=== PATIENT | female | born 1965 | race African-American/Black ===

== ENCOUNTER 2016-10-29 07:41 | Emergency (ER) | payer OTHER ==
[~2016-10-29] VITALS: Ht 154.9 cm; Wt 112.0 kg
[~2016-10-29 07:41] MED LIST: CARD240C6 PO; FURO1TAB93 PO; OMEP20.62 PO; POTA10CA26 PO; RANI150 PO
[2016-10-29 07:43] VITALS: BP 140/95; PULSE 76; RESP 20; TEMP 98.1; O2SAT 95
--- NOTE | 2016-10-29 08:45 | PD ---
HPI Chief Complaint: Pain: Acute or Chronic Time Seen by Provider: 08:00 Travel History International Travel<30 days: No Contact w/Intl Traveler<30days: No Traveled to known affect area: No History of Present Illness HPI Patient is a 51-year-old female presenting to the emergency department for evaluation of left knee pain. Patient denies any injury or trauma. Pain started on Thursday night, patient took ibuprofen on Thursday which relieved pain somewhat. Throughout the day on Thursday the pain increased. Pain is worse with ambulation it is partially relieved with rest. She states that she's been off of her blood pressure medication for several months, and is requesting a refill. PFSH Past Medical History Arthritis: No Asthma: Yes Autoimmune Disease: No Blood Disorders: No Heart Rhythm Problems: Yes Cancer: No Cardiac Catheterization: Yes Cardiovascular Problems: Yes High Cholesterol: Yes Chest Pain: Yes Congestive Heart Failure: No COPD: No Diabetes: No Diminished Hearing: No Endocrine: Yes (MILROY'S SYNDROME) Gastrointestinal Disorders: Yes GERD: Yes Glaucoma: No Genitourinary: Yes Headaches: Yes Hepatitis: No Hiatal Hernia: No Hypertension: Yes Immune Disorder: No Kidney Stones: Yes Musculoskeletal: No Neurologic: Yes Psychiatric: No Reproductive: Yes Respiratory: Yes (bronchitis) Immunizations Current: No Migraines: Yes Myocardial Infarction: No Renal Failure: No Seizures: No Sickle Cell Disease: No Sleep Apnea: No Thyroid Disease: No Ulcer: Yes Past Surgical History Abdominal Surgery: Yes (abdominal total hysterectomy) AICD: No Appendectomy: No Arteriovenous Shunt: No Cardiac Surgery: Yes (cardiac cath ) Section: Yes (X2) Cholecystectomy: Yes (PT DENIES) Coronary Artery Bypass Graft: No Ear Surgery: No Endocrine Surgery: No Eye Surgery: No Genitourinary Surgery: No Gynecologic Surgery: Yes (2 c-sections, 1 lap hysterectomy, 1 total hysterectomy) Hysterectomy: Yes Insulin Pump: No Joint Replacement: No Oral Surgery: No Pacemaker: No Thoracic Surgery: No Other Surgery: Yes (BILAT FEET SURGERY INFANT) Social History Alcohol Use: Yes (OCCASIONAL) Tobacco Use: No Substance Use: No Allergies-Medications (Allergen,Severity, Reaction): Uncoded Allergies: seasonal (Allergy, Severe, 11/09/13) sneezing, sinus pressure Reported Meds & Prescriptions Reported Meds & Active Scripts Active Review of Systems Except as stated in HPI: all other systems reviewed are Neg Musculoskeletal: Positive: Myalgias, Arthralgias, 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 Resting comfortably in no acute distress. SKIN: Warm and dry. HEAD: Normocephalic. EYES: No scleral icterus. No injection or drainage. NECK: Supple, trachea midline. No JVD or lymphadenopathy. CARDIOVASCULAR: Regular rate and rhythm without murmurs, gallops, or rubs. RESPIRATORY: Breath sounds equal bilaterally. No accessory muscle use. No wheezing, rhonchi, or rales noted. GASTROINTESTINAL: Abdomen obese, soft, non-tender, nondistended. MUSCULOSKELETAL: No cyanosis, 1+ edema to bilateral lower extremities. Tenderness to palpation patella medially. No erythema noted. BACK: Nontender without obvious deformity. No CVA tenderness. Data Data Last Documented VS Vital Signs Date Time Temp Pulse Resp B/P Pulse Ox O2 Delivery O2 Flow Rate FiO2 10/29/16 07:43 98.1 76 20 140/95 95 Room Air Orders Knee, Complete (4vws) (10/29/16 ) [facility] Medical Decision Making Medical Screen Exam Complete: Yes Emergency Medical Condition: Yes Interpretation(s) Vital Signs Date Time Temp Pulse Resp B/P Pulse Ox O2 Delivery O2 Flow Rate FiO2 10/29/16 07:43 98.1 76 20 140/95 95 Room Air Differential Diagnosis Arthritis versus fracture versus dislocation versus other Narrative Course Patient is a 51-year-old female presenting to the emergency evaluation of left knee pain. There was no injury or trauma. 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 There is no obvious deformity. Imaging was performed which revealed degenerative changes. Patient was given prescription for meloxicam, she is encouraged follow-up with her primary doctor. Patient will also be provided with prescription for her Cardizem, she is encouraged follow-up with Dr. Arita her marsh buggy operator for further prescription refills. Additionally patient was encouraged to continue range of motion exercises to keep the joint fluid. Patient verbalizes understanding of instructions. Patient is stable for discharge. Diagnosis Primary Impression: Knee pain Qualified Code: M25.562 - Left knee pain, unspecified chronicity Additional Impression: Arthritis Referrals: Provider Engagement Executive Primary Care Physician Patient Instructions: Arthritis (GEN), General Instructions Additional Instructions: Continue range of motion exercises, alternate heat and ice to the affected area , avoid inactivity or bedrest Follow-up with her primary doctor Follow-up with her marsh buggy operator Return to emergency department for any new or worsening symptoms Med/Other Pt SpecificInfo: Prescription(s) given Scripts Meloxicam 7.5 Mg Tab7.5 Mg PO DAILY 10 Days Ref 0 Prov:Geovanna Diaz 10/29/16 Diltiazem CD 24 HR 240 Mg [id number] Mg PO DAILY #30 CAP Ref 0 Prov:Geovanna Diaz 10/29/16 Disposition: 01 DISCHARGE HOME Condition: Stable Geovanna Diaz Oct 29, 2016 08:45
--- NOTE | 2016-10-29 09:15 | RADRPT ---
EXAM DATE/TIME: 10/29/2016 08:27 [facility] COMPARISON: No previous studies available for comparison. INDICATIONS : Left knee pain, no injury. MEDICAL HISTORY : None. SURGICAL HISTORY : None. ENCOUNTER: Initial ACUITY: 2 days PAIN SCORE: 9/10 LOCATION: Left knee FINDINGS: There is moderate arthritic change present with mild medial compartment joint space narrowing and tri compartmental osteophyte formation. No evidence of joint effusion or fracture. Mineralization and ali gnment are satisfactory. CONCLUSION: Moderate degenerative arthritic change. No acute bony findings Bry March MD on October 29, 2016 at 9:12 Board Certified Radiologist. This report was verified electronically.
[2016-10-29] MEDS ORDERED: MELO7.5T4 PO (09:43)
[2016-10-29] MEDS ORDERED: DILT-64 PO (09:43)
== END 2016-10-29 10:02 | disposition home or self-care (01) ==
LOC: NEPB 07:41
DX: M25.562 Pain in left knee (principal)
CPT/HCPCS: 73564; 99283

== ENCOUNTER 2017-04-03 11:42 | Emergency (ER) | payer OTHER ==
[~2017-04-03 11:42] MED LIST changes: -CARD240C6 PO; +DILT-64 PO; -FURO1TAB93 PO; +MELO7.5T4 PO; -OMEP20.62 PO; -POTA10CA26 PO; -RANI150 PO
[2017-04-03 11:46] VITALS: BP 184/122; PULSE 73; RESP 22; TEMP 98.7; O2SAT 98
[2017-04-03] MEDS ORDERED: CLAR10CA3 PO (12:18)
[2017-04-03] MEDS ORDERED: FURO20TA PO (12:18)
--- NOTE | 2017-04-03 12:34 | PD ---
HPI Chief Complaint: Cold / Flu Symptoms Time Seen by Provider: 12:32 Travel History International Travel<30 days: No Contact w/Intl Traveler<30days: No Traveled to known affect area: No History of Present Illness HPI 52-year-old female presents to the emergency department for evaluation of cough , shortness breath and has been ongoing for 4 weeks. 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 The patient denies any fevers. She denies any chest pain. She reports shortness of breath. No abdominal pain. No nausea, vomiting, diarrhea. Patient states she is a nonsmoker. She does report history of GERD, hypertension. She denies any history of CHF. Patient states she has an appointment with her primary care physician on Thursday. She denies any recent surgery or travel. No history DVT or PE. No hemoptysis. No leg edema. No history of cancer. Patient with history of hysterectomy. PFSH Past Medical History Arthritis: No Asthma: Yes Autoimmune Disease: No Blood Disorders: No Heart Rhythm Problems: Yes Cancer: No Cardiac Catheterization: Yes Cardiovascular Problems: Yes High Cholesterol: Yes Chest Pain: Yes Congestive Heart Failure: No COPD: No Diabetes: No Diminished Hearing: No Endocrine: Yes (MILROY'S SYNDROME) Gastrointestinal Disorders: Yes GERD: Yes Glaucoma: No Genitourinary: Yes Headaches: Yes Hepatitis: No Hiatal Hernia: No Hypertension: Yes Immune Disorder: No Kidney Stones: Yes Musculoskeletal: No Neurologic: Yes Psychiatric: No Reproductive: Yes Respiratory: Yes (bronchitis) Immunizations Current: No Migraines: Yes Myocardial Infarction: No Renal Failure: No Seizures: No Sickle Cell Disease: No Sleep Apnea: No Thyroid Disease: No Ulcer: Yes Past Surgical History Abdominal Surgery: Yes (abdominal total hysterectomy) AICD: No Appendectomy: No Arteriovenous Shunt: No Cardiac Surgery: Yes (cardiac cath ) Section: Yes (X2) Cholecystectomy: Yes (PT DENIES) Coronary Artery Bypass Graft: No Ear Surgery: No Endocrine Surgery: No Eye Surgery: No Genitourinary Surgery: No Gynecologic Surgery: Yes (2 c-sections, 1 lap hysterectomy, 1 total hysterectomy) Hysterectomy: Yes Insulin Pump: No Joint Replacement: No Oral Surgery: No Pacemaker: No Thoracic Surgery: No Other Surgery: Yes (BILAT FEET SURGERY INFANT) Social History Alcohol Use: Yes (OCCASIONAL) Tobacco Use: No Substance Use: No Allergies-Medications (Allergen,Severity, Reaction): Uncoded Allergies: seasonal (Allergy, Severe, 11/09/13) sneezing, sinus pressure Reported Meds & Prescriptions Reported Meds & Active Scripts Active Diltiazem CD 24 HR 240 Mg Caper 240 Mg PO DAILY Reported Claritin (Loratadine) 10 Mg Cap 10 Mg PO DAILY Furosemide 20 Mg Tab 20 Mg PO DAILY Review of Systems Except as stated in HPI: all other systems reviewed are Neg Physical Exam Narrative GENERAL: Well-nourished, well-developed female patient, ambulatory. Afebrile. SKIN: Focused skin assessment warm/dry. HEAD: Normocephalic. Atraumatic. EYES: No scleral icterus. No injection or drainage. NECK: Supple, trachea midline. No JVD or lymphadenopathy. CARDIOVASCULAR: Regular rate and rhythm without murmurs, gallops, or rubs. RESPIRATORY: Breath sounds equal bilaterally. No accessory muscle use. Lungs sounds are clear to auscultation. GASTROINTESTINAL: Abdomen soft, non-tender, nondistended. MUSCULOSKELETAL: No cyanosis, or edema. BACK: Nontender without obvious deformity. No CVA tenderness. Data Data Last Documented VS Vital Signs Date Time Temp Pulse Resp B/P Pulse Ox O2 Delivery O2 Flow Rate FiO2 04/03/17 12:35 78 21 168/69 99 Room Air 04/03/17 11:46 98.7 Orders Complete Blood Count With Diff (04/03/17 12:31) Basic Metabolic Panel (Bmp) (04/03/17 12:31) Chest, Single Ap (04/03/17 ) B-Type Natriuretic Peptide (04/03/17 12:34) Labs Laboratory Tests Test 04/03/17 04/03/17 12:50 13:10 White Blood Count 6.8 TH/MM3 Red Blood Count 4.66 MIL/MM3 Hemoglobin 12.7 GM/DL Hematocrit 37.9 % Mean Corpuscular Volume 81.3 FL Mean Corpuscular Hemoglobin 27.2 PG Mean Corpuscular Hemoglobin 33.5 % Concent Red Cell Distribution Width 13.8 % Platelet Count 236 TH/MM3 Mean Platelet Volume 9.6 FL Neutrophils (%) (Auto) 62.9 % Lymphocytes (%) (Auto) 29.1 % Monocytes (%) (Auto) 6.0 % Eosinophils (%) (Auto) 1.6 % Basophils (%) (Auto) 0.4 % Neutrophils # (Auto) 4.3 TH/MM3 Lymphocytes # (Auto) 2.0 TH/MM3 Monocytes # (Auto) 0.4 TH/MM3 Eosinophils # (Auto) 0.1 TH/MM3 Basophils # (Auto) 0.0 TH/MM3 CBC Comment DIFF FINAL Differential Comment Sodium Level 140 MEQ/L Potassium Level 4.0 MEQ/L Chloride Level 105 MEQ/L Carbon Dioxide Level 28.0 MEQ/L Anion Gap 7 MEQ/L Blood Urea Nitrogen 7 MG/DL Creatinine 0.85 MG/DL Estimat Glomerular Filtration 85 ML/MIN Rate Random Glucose 78 MG/DL Calcium Level 8.9 MG/DL B-Type Natriuretic Peptide 4 PG/ML MDM Medical Decision Making Medical Screen Exam Complete: Yes Emergency Medical Condition: Yes Medical Record Reviewed: Yes Interpretation(s) Last Impressions Chest X-Ray 04/03/17 0000 Signed Impressions: Service Date/Time: Monday, April 03, 2017 12:57 - CONCLUSION: No acute cardiopulmonary disease. Donna Luis MD Differential Diagnosis URI versus bronchitis versus pneumonia Narrative Course 52 year old female presents to the emergency department for evaluation of URI symptoms that have been ongoing for 4 weeks. Patient does appear well on exam. CBC, BMP, BNP are ordered and pending. Chest x-ray is ordered and pending. CBC is unremarkable. BMP is unremarkable. BNP is 4. Chest x-ray shows no acute cardiopulmonary disease. Laboratory physical exam are reassuring. There is no evidence of bacterial infection at this time. Patient states she already has Tessalon Perles as needed. She will be discharged with a prescription for an albuterol inhaler. She verbalizes agreement and understanding. She states she has appointment with her primary care provider on Thursday. She is return for any acute worsening of symptoms. The patient was discharged in stable condition with instructions, including return instructions and follow up instructions. Diagnosis Primary Impression: Upper respiratory infection Qualified Code: J06.9 - Upper respiratory tract infection, unspecified type Referrals: Primary Care Physician call for appointment Patient Instructions: General Instructions, Upper Respiratory Infection (ED) Additional Instructions: Use albuterol inhaler as instructed as needed for shortness of breath/wheezing. Follow-up with your primary care physician. Return to the emergency department for any acute worsening of symptoms. Med/Other Pt SpecificInfo: Prescription(s) given Scripts Albuterol 18 GM Inh (Ventolin Hfa 18 GM Inh)90 Mcg/Act Aer1 Puff INH Q4H PRN ( SHORTNESS OF BREATH) #1 INHALER Ref 0 Prov:Debby El 04/03/17 Disposition: 01 DISCHARGE HOME Condition: Stable Debby El Apr 03, 2017 12:34
[2017-04-03 12:35] VITALS: BP 168/69; PULSE 78; RESP 21; O2SAT 99
[2017-04-03 13:23] LABS: AUTOMATED NEUTROPHIL # 4.3 TH/MM3 (1.8-7.7); BASOPHIL % 0.4 % (0.0-2.0); EOSINOPHIL # 0.1 TH/MM3 (0-0.4); EOSINOPHIL % 1.6 % (0.0-4.0); HEMATOCRIT 37.9 % (35.0-46.0); HEMO FLAGS DIFF FINAL; LYMPH % 29.1 % (9.0-44.0); MEAN CELL VOLUME 81.3 FL (80.0-100.0); MEAN CORPUSCULAR HEMOGLOBIN 27.2 PG (27.0-34.0); MEAN CORPUSCULAR HGB CONC 33.5 % (32.0-36.0); NEUT % 62.9 % (16.0-70.0); PLATELET COUNT 236 TH/MM3 (150-450); RED BLOOD COUNT 4.66 MIL/MM3 (4.00-5.30); RED CELL DISTRIBUTION WIDTH 13.8 % (11.6-17.2); WHITE BLOOD COUNT 6.8 TH/MM3 (4.0-11.0)
--- NOTE | 2017-04-03 13:49 | RADRPT ---
EXAM DATE/TIME: 04/03/2017 12:57 [facility] COMPARISON: CHEST PA & LAT, July 18, 2015, 10:39. INDICATIONS : Chest pain and shortness of breath. MEDICAL HISTORY : Hypertension. Bronchitis. Asthma. SURGICAL HISTORY : Heart catheter. ENCOUNTER: Initial ACUITY: 1 month PAIN SCORE: 9/10 LOCATION: Bilateral chest FINDINGS: The lungs are clear without infiltrate, nodule, or mass. There is no appreciable pleural effusion fo r technique. Moderate cardiomegaly has not changed. CONCLUSION: No acute cardiopulmonary disease. Donna Luis MD on April 03, 2017 at 13:46 Board Certified Radiologist. This report was verified electronically.
[2017-04-03] MEDS ORDERED: VENTAER INH (14:15)
[2017-04-03 14:27] VITALS: BP 176/72
== END 2017-04-03 14:36 | disposition home or self-care (01) ==
LOC: NEPD 11:42
DX: J06.9 Acute upper respiratory infection, unspecified (principal); K21.9 Gastro-esophageal reflux disease without esophagitis; I10 Essential (primary) hypertension; R06.02 Shortness of breath
CPT/HCPCS: 71010; 80048; 83880; 85025; 99284

== ENCOUNTER 2017-07-15 00:29 | Observation (INO) | payer OTHER ==
[2017-07-15] VITALS (17 sets, daily range): BP systolic 118–230; BP diastolic 58–105; PULSE 60–72; RESP 16–20; TEMP 98.1–98.5; O2SAT 95–100
[~2017-07-15] VITALS: Ht 154.9 cm; Wt 105.0 kg
[~2017-07-15 00:29] MED LIST changes: +CLAR10CA3 PO; -DILT-64 PO; +DILT240C44 PO; +FURO20TA PO; -MELO7.5T4 PO; +VENTAER INH
[2017-07-15] MEDS ORDERED: SODIUM CHLORIDE 0.9% FLUSH 10 ML FLUSH IVF PRN (00:45)
--- NOTE | 2017-07-15 00:50 | PD ---
HPI Chief Complaint: Chest Pain Time Seen by Provider: 00:41 Travel History International Travel<30 days: No Contact w/Intl Traveler<30days: No Traveled to known affect area: No History of Present Illness HPI WHILE ASLEEP, CHEST PRESSURE AWAKEN HER, RADIATED TO BACK, ORIGINALLY 910, CURRENTLY 01/14, PATIENT HYPERTENSIVE 230 SBP AT TIME OF CURRENT PAIN SCALE. PATIENT DENIES FEVER/SOB/COUGH/ ABD PAIN/N/V/D/....NO ALLEVIATING/AGGRAVATING FACTORS PCP DR CONCHITA BENITES CARDIO CHERYL WILKINS? PMHX PSXH PFSH Past Medical History Arthritis: No Asthma: Yes Autoimmune Disease: No Blood Disorders: No Heart Rhythm Problems: Yes Cancer: No Cardiac Catheterization: Yes Cardiovascular Problems: Yes High Cholesterol: Yes Chest Pain: Yes Congestive Heart Failure: No COPD: No Diabetes: No Diminished Hearing: No Endocrine: Yes (MILROY'S SYNDROME) Gastrointestinal Disorders: Yes GERD: Yes Glaucoma: No Genitourinary: Yes Headaches: Yes Hepatitis: No Hiatal Hernia: No Heparin Induced Thrombocytopen: No Hypertension: Yes Immune Disorder: No Kidney Stones: Yes Musculoskeletal: No Neurologic: Yes Psychiatric: No Reproductive: Yes Respiratory: Yes (bronchitis) Immunizations Current: No Migraines: Yes Myocardial Infarction: No Renal Failure: No Seizures: No Sickle Cell Disease: No Sleep Apnea: No Thyroid Disease: No Ulcer: Yes ?: Not Past Surgical History Abdominal Surgery: Yes (abdominal total hysterectomy) AICD: No Appendectomy: No Arteriovenous Shunt: No Cardiac Surgery: Yes (cardiac cath ) Section: Yes (X2) Cholecystectomy: Yes (PT DENIES) Coronary Artery Bypass Graft: No Ear Surgery: No Endocrine Surgery: No Eye Surgery: No Genitourinary Surgery: No Gynecologic Surgery: Yes (2 c-sections, 1 lap hysterectomy, 1 total hysterectomy) Hysterectomy: Yes Insulin Pump: No Joint Replacement: No Oral Surgery: No Pacemaker: No Thoracic Surgery: No Other Surgery: Yes (BILAT FEET SURGERY ) Family History Family Myocardial Infarction: Yes (mother and sister) Social History Alcohol Use: Yes (OCCASIONAL) Tobacco Use: No Substance Use: No Allergies-Medications (Allergen,Severity, Reaction): Coded Allergies: No Known Allergies (Unverified , 07/15/17) No known DRUG allergies: NKDA Uncoded Allergies: seasonal (Allergy, Severe, 11/09/13) sneezing, sinus pressure Reported Meds & Prescriptions Reported Meds & Active Scripts Active Diltiazem CD 24 HR 240 Mg Caper 240 Mg PO DAILY Review of Systems Except as stated in HPI: all other systems reviewed are Neg Cardiovascular: Positive: Chest Pain or Discomfort, Tachycardia Physical Exam Narrative GENERAL: SKIN: Warm and dry. HEAD: Atraumatic. Normocephalic. EYES: Pupils equal and round. No scleral icterus. No injection or drainage. ENT: No nasal bleeding or discharge. Mucous membranes pink and moist. NECK: Trachea midline. No JVD. CARDIOVASCULAR: Regular rate and rhythm. RESPIRATORY: No accessory muscle use. Clear to auscultation. Breath sounds equal bilaterally. GASTROINTESTINAL: Abdomen soft, non-tender, nondistended. MUSCULOSKELETAL: Extremities without clubbing, cyanosis, or edema. No obvious deformities. NEUROLOGICAL: Awake and alert. No obvious cranial nerve deficits. Motor grossly within normal limits. Five out of 5 muscle strength in the arms and legs. Normal speech. PSYCHIATRIC: Appropriate mood and affect; insight and judgment normal. Data Data Last Documented VS Orders Orders Electrocardiogram (07/15/17 00:41) B-Type Natriuretic Peptide (07/15/17 00:41) Ckmb (Isoenzyme) Profile (07/15/17 00:41) Complete Blood Count With Diff (07/15/17 00:41) Comprehensive Metabolic Panel (07/15/17 00:41) Prothrombin Time / Inr (Pt) (07/15/17 00:41) Act Partial Throm Time (Ptt) (07/15/17 00:41) Troponin I (07/15/17 00:41) Lipase (07/15/17 00:41) Chest, Single Ap (07/15/17 00:41) Ecg Monitoring (07/15/17 00:41) Bilateral Bp Monitoring (07/15/17 00:41) Iv Access Insert/Monitor (07/15/17 00:41) Oximetry (07/15/17 00:41) Oxygen Administration (07/15/17 00:41) Sodium Chloride 0.9% Flush (Ns Flush) (07/15/17 00:45) CKMB (07/15/17 01:00) CKMB% (07/15/17 01:00) Meclizine (Antivert) (07/15/17 02:45) Activity Bed Rest With Brp (07/15/17 02:36) Vital Signs (Adult) Q4H (07/15/17 02:36) Cardiac Rhythm .As Directed (07/15/17 02:36) Notify Dr: Other .PRN (07/15/17 02:36) Notify . Parameters (07/15/17 02:36) Resp Oxygen Nasal Cannula (07/15/17 ) Ckmb (Isoenzyme) Profile (07/15/17 02:36) Ckmb (Isoenzyme) Profile (07/15/17 05:36) Troponin I (07/15/17 02:36) Troponin I (07/15/17 05:36) Electrocardiogram (07/15/17 02:36) Electrocardiogram (07/15/17 05:36) ^ Obtain (07/15/17 02:36) Sodium Chloride 0.9% Flush (Ns Flush) (07/15/17 02:45) Sodium Chloride 0.9% Flush (Ns Flush) (07/15/17 09:00) Ondansetron Inj (Zofran Inj) (07/15/17 02:45) Nitroglycerin 2% Oint (Nitroglycerin 2% (07/15/17 06:00) Nitroglycerin Sl (Nitrostat Sl) (07/15/17 02:45) Aspirin Chew (Aspirin Chew) (07/15/17 02:45) Assistant Credit Manager / Telemetry [email or web address] (07/15/17 02:36) Admit Order (Ed Use Only) (07/15/17 02:42) CKMB (07/15/17 04:00) CKMB% (07/15/17 04:00) CKMB (07/15/17 07:20) CKMB% (07/15/17 07:20) Labs Laboratory Tests Test 07/15/17 01:00 White Blood Count 7.0 TH/MM3 Red Blood Count 4.58 MIL/MM3 Hemoglobin 12.3 GM/DL Hematocrit 37.0 % Mean Corpuscular Volume 80.8 FL Mean Corpuscular Hemoglobin 26.9 PG Mean Corpuscular Hemoglobin Concent 33.3 % Red Cell Distribution Width 13.8 % Platelet Count 250 TH/MM3 Mean Platelet Volume 9.3 FL Neutrophils (%) (Auto) 53.8 % Lymphocytes (%) (Auto) 36.1 % Monocytes (%) (Auto) 8.3 % Eosinophils (%) (Auto) 1.5 % Basophils (%) (Auto) 0.3 % Neutrophils # (Auto) 3.7 TH/MM3 Lymphocytes # (Auto) 2.5 TH/MM3 Monocytes # (Auto) 0.6 TH/MM3 Eosinophils # (Auto) 0.1 TH/MM3 Basophils # (Auto) 0.0 TH/MM3 CBC Comment DIFF FINAL Differential Comment Prothrombin Time 10.0 SEC Prothromb Time International Ratio 0.9 RATIO Activated Partial Thromboplast Time 27.8 SEC Blood Urea Nitrogen 12 MG/DL Creatinine 1.06 MG/DL Random Glucose 82 MG/DL Total Protein 8.4 GM/DL Albumin 3.8 GM/DL Calcium Level 8.8 MG/DL Alkaline Phosphatase 55 U/L Aspartate Amino Transf (AST/SGOT) 17 U/L Alanine Aminotransferase (ALT/SGPT) 19 U/L Total Bilirubin 0.6 MG/DL Sodium Level 141 MEQ/L Potassium Level 3.4 MEQ/L Chloride Level 105 MEQ/L Carbon Dioxide Level 28.5 MEQ/L Anion Gap 8 MEQ/L Estimat Glomerular Filtration Rate 66 ML/MIN Total Creatine Kinase 233 U/L Creatine Kinase MB 0.9 NG/ML Creatine Kinase MB % 0.4 % Troponin I LESS THAN 0.02 NG/ML B-Type Natriuretic Peptide 7 PG/ML Lipase 229 U/L MDM Medical Decision Making Medical Screen Exam Complete: Yes Emergency Medical Condition: Yes Medical Record Reviewed: Yes Interpretation(s) NSR 63, 1ST DEGREE AV BLOCK, T WAVE INVERSION OVER V1-V3...ALSO SOME MOTION ARTIFACT Differential Diagnosis stemi v nonstemi v ich v htn emergency Narrative Course patient noted to have severe htn, which became more under control with iv antihypertensive, also neg first troponin, will admit to r/o mi Diagnosis Primary Impression: accelerated htn Additional Impression: cp r/o mi Admitting Information Admitting Physician Requests: Observation Rey Acuña MD Jul 15, 2017 00:50
--- NOTE | 2017-07-15 01:15 | RADRPT ---
EXAM DATE/TIME: 07/15/2017 00:51 [facility] COMPARISON: CHEST SINGLE AP, April 03, 2017, 12:57. INDICATIONS : Chest pain. MEDICAL HISTORY : Hypertension. Asthma. SURGICAL HISTORY : None. ENCOUNTER: Initial ACUITY: 1 day PAIN SCORE: 4/10 LOCATION: Left chest FINDINGS: The cardiac silhouette is enlarged in transverse diameter. There is prominence of the central pulmona ry vasculature with indistinct vascular margins compatible with vascular congestion but no evidence o f overt failure. No pleural effusions are identified. CONCLUSION: 1. Cardiomegaly and findings of vascular congestion without overt failure. Bassam Bland MD on July 15, 2017 at 1:13 Board Certified Radiologist. This report was verified electronically.
[2017-07-15] MEDS ORDERED: BENA25CA4 PO (01:21)
[2017-07-15] MEDS ORDERED: CLAR10CA3 PO (01:21)
[2017-07-15 01:39] LABS: AUTOMATED NEUTROPHIL # 3.7 TH/MM3 (1.8-7.7); BASOPHIL % 0.3 % (0.0-2.0); EOSINOPHIL # 0.1 TH/MM3 (0-0.4); EOSINOPHIL % 1.5 % (0.0-4.0); HEMO FLAGS DIFF FINAL; LYMPH % 36.1 % (9.0-44.0); LYMPHOCYTE # 2.5 TH/MM3 (1.0-4.8); MEAN CELL VOLUME 80.8 FL (80.0-100.0); MEAN CORPUSCULAR HEMOGLOBIN 26.9 PG (27.0-34.0); MEAN CORPUSCULAR HGB CONC 33.3 % (32.0-36.0); MONO % 8.3 % (0.0-8.0); NEUT % 53.8 % (16.0-70.0); PLATELET COUNT 250 TH/MM3 (150-450); RED BLOOD COUNT 4.58 MIL/MM3 (4.00-5.30); RED CELL DISTRIBUTION WIDTH 13.8 % (11.6-17.2)
[2017-07-15 01:45] LABS: APTT (PATIENT) 27.8 SEC (24.3-30.1); INTERNATIONAL NORMALIZED RATIO 0.9 RATIO
[2017-07-15 02:05] LABS: ALT (GPT) 19 U/L (10-53); ANION GAP 8 MEQ/L (5-15); AST (GOT) 17 U/L (15-37); BICARBONATE 28.5 MEQ/L (21.0-32.0); BLOOD UREA NITROGEN 12 MG/DL (7-18); CHLORIDE 105 MEQ/L (98-107); GLOMERULAR FILTRATION RATE 66 ML/MIN (>89); POTASSIUM 3.4 MEQ/L (3.5-5.1); SODIUM (NA) 141 MEQ/L (136-145)
[2017-07-15 02:09] LABS: ALKALINE PHOSPHATASE 55 U/L (45-117); CREATINE KINASE 233 U/L (26-192); TOTAL BILIRUBIN ADULT 0.6 MG/DL (0.2-1.0)
[2017-07-15 02:22] LABS: CKMB 0.9 NG/ML (0.5-3.6)
[2017-07-15] MEDS ORDERED: SODIUM CHLORIDE 0.9% FLUSH 10 ML FLUSH IV FLUSH PRN (02:45)
[2017-07-15] MEDS ORDERED: MECLIZINE HCL 25 MG TAB PO ONE (02:45)
[2017-07-15] MEDS ORDERED: NITROGLYCERIN 0.4 MG SL 25 TABS/BTL SL PRN (02:45)
[2017-07-15] MEDS ORDERED: ASPIRIN 81 MG CHEW TAB PO ONE (02:45)
[2017-07-15] MEDS ORDERED: ONDANSETRON HCL 4 MG/2 ML VIAL IV PUSH PRN (02:45)
[2017-07-15] MEDS ORDERED: MORPHINE SULFATE 4 MG/ML INJ IV PUSH PRN (04:15)
[2017-07-15] MEDS ORDERED: ACETAMINOPHEN/HYDROcodone 325 MG/7.5 MG TAB PO PRN (04:15)
[2017-07-15 04:47] LABS: CREATINE KINASE 202 U/L (26-192)
[2017-07-15 04:59] LABS: CKMB 0.8 NG/ML (0.5-3.6)
[2017-07-15 06:31] LABS: BACTERIA, URINE RARE /hpf; BLOOD, URINE NEG (NEG); COMMENT (UR) CULT NOT INDICATED; CULTURE IF INDICATED CULT NOT INDICATED; GLUCOSE,URINE NEG (NEG); KETONE, URINE NEG (NEG); NITRITE,URINE NEG (NEG); PH, URINE 6.5 (5.0-8.5); URINE COLOR LIGHT-YELLOW (YELLW/STRAW)
[2017-07-15] MEDS: NITROGLYCERIN 2% OINT 1 GM PACKET TOP SCH ×2 (06:32→12:00)
[2017-07-15 08:23] LABS: CREATINE KINASE 181 U/L (26-192)
[2017-07-15 08:37] LABS: CKMB 0.9 NG/ML (0.5-3.6)
[2017-07-15] MEDS ORDERED: SODIUM CHLORIDE 0.9% FLUSH 10 ML FLUSH IV FLUSH SCH (09:00)
[2017-07-15] MEDS ORDERED: REGADENOSON INJ 0.4 MG/5 ML SYR ONE (11:32)
--- NOTE | 2017-07-15 12:34 | EKG ---
Date Performed: 07/15/2017 Time Performed: 07:37:05 PTAGE: 52 years EKG: Sinus rhythm WITH FIRST DEGREE AV BLOCK MODERATE T-WAVE ABNORMALITY, CONSIDER ANTERIOR ISCHEMIA ABNORMAL ECG PREVIOUS TRACING : 07/15/2017 03.59 Since previous tracing, no significant change noted DOCTOR: Bassam Arita Interpretating Date/Time 07/15/2017 12:32:56
--- NOTE | 2017-07-15 12:34 | EKG ---
Date Performed: 07/15/2017 Time Performed: 03:59:56 PTAGE: 52 years EKG: Sinus rhythm MODERATE T-WAVE ABNORMALITY, CONSIDER ANTERIOR ISCHEMIA ABNORMAL ECG PREVIOUS TRACING : 07/15/2017 00.42 Since previous tracing, no significant change noted DOCTOR: Bassam Arita Interpretating Date/Time 07/15/2017 12:33:28
--- NOTE | 2017-07-15 12:37 | EKG ---
Date Performed: 07/15/2017 Time Performed: 00:42:27 PTAGE: 52 years EKG: Sinus rhythm MODERATE T-WAVE ABNORMALITY, CONSIDER ANTERIOR ISCHEMIA ABNORMAL ECG PREVIOUS TRACING : 02/23/2016 20.49 Since previous tracing, no significant change noted DOCTOR: Bassam Arita Interpretating Date/Time 07/15/2017 12:35:06
--- NOTE | 2017-07-15 12:48 | TR ---
Date Performed: 07/15/2017 Time Performed: 11:53:48 DOCTOR: Bassma Arita DRUG LIST: CLINICAL HISTORY: REASON FOR TEST: CHEST PAIN REASON FOR ENDING: OBSERVATION: CONCLUSION: Lexiscan stress test was performed under standard four minute protocol. Radionuclid e was injected one minute prior to ending the test. No electrocardiographic abormalities were present to suggest ischemia. Nuclear imaging and interpretation are pending. COMMENTS:
--- NOTE | 2017-07-15 12:52 | HHI.HP ---
HPI Primary Care Physician No Primary Care Physician Chief Complaint Chest pain History of Present Illness This is a 52-year-old female that presents to the ED with a complaint of waking up about midnight with a chest discomfort. She describes as a tightness states it is still there but not as bad. Worse level is about 8 out of 10. Shunt nothing that helps or worsens the discomfort. Denies shortness of breath, nausea, or diaphoresis. Review of Systems General: Patient denies fevers, chills recent, and recent travel HEENT: Patient denies headache, sore throat, difficulty swallowing. Cardiovascular: Has the chest discomfort as mentioned above. Denies sensation of heart beating rapidly or irregularly. No syncope. Denies diaphoresis. Respiratory: Denies shortness of breath or inspirational chest discomfort. Denies coughing wheezing or hemoptysis. GI: Patient denies nausea, vomiting, diarrhea, abdominal pain, bloody stools. Musculoskeletal: Patient denies joint pain or edema. Denies calf pain or edema. Neurovascular: Patient denies numbness, tingling, weakness in extremities. Denies headache. Endocrine: Denies polyuria and polydipsia. Hematologic: Denies easy bruising. Skin: Denies rash or itching. Past Family Social History Allergies: Coded Allergies: No Known Allergies (Unverified , 07/15/17) No known DRUG allergies: NKDA Uncoded Allergies: seasonal (Allergy, Severe, 11/09/13) sneezing, sinus pressure Past Medical History Hypertension. Denies hyperlipidemia, diabetes, and CAD. Past Surgical History 2. Hysterectomy. Bilateral feet surgery as an infant. Reported Medications Reported Meds & Active Scripts Active Diltiazem CD 24 HR 240 Mg Caper 240 Mg PO DAILY Reported Benadryl Allergy (Diphenhydramine HCl) 25 Mg Cap 25 Mg PO HS PRN Claritin (Loratadine) 10 Mg Cap 20 Mg PO DAILY Furosemide 20 Mg Tab 20 Mg PO DAILY Active Ordered Medications Current Medications Medications (Trade) Dose Ordered Sig/Kathrine Route Start Time Stop Time Status Last Admin (NS Flush) 2 ml UNSCH PRN IVF 07/15/17 00:45 (NS Flush) 2 ml UNSCH PRN IV FLUSH 07/15/17 02:45 (NS Flush) 2 ml BID IV FLUSH 07/15/17 09:00 07/15/17 07:54 (Zofran Inj) 4 mg Q6H PRN IV PUSH 07/15/17 02:45 (Nitroglycerin 2% Oint) 1 inch Q6HR TOP 07/15/17 06:00 07/15/17 06:32 (Nitrostat Sl) 0.4 mg Q5M PRN SL 07/15/17 02:45 (Crane 7.5-325 Mg) 1 tab Q4H PRN PO 07/15/17 04:15 (Morphine Inj) 2 mg Q4H PRN IV PUSH 07/15/17 04:15 07/15/17 04:14 Family History Denies family history of CAD. Social History Nonsmoker. Occasional alcohol. Denies illicit drug use. Physical Exam Vital Signs Vital Signs Date Time Temp Pulse Resp B/P (MAP) Pulse Ox O2 Delivery O2 Flow Rate FiO2 07/15/17 09:30 60 16 136/63 (87) 95 Room Air 07/15/17 08:30 62 20 (88) 100 Room Air 07/15/17 07:41 96 21 07/15/17 07:30 64 16 144/60 (88) 98 Room Air 07/15/17 06:32 65 20 157/72 (100) 98 Room Air 07/15/17 06:00 68 20 158/70 (99) 98 Room Air 07/15/17 05:30 70 20 121/58 (79) 100 Room Air 07/15/17 05:00 72 20 118/58 (78) 99 Room Air 07/15/17 04:09 71 16 168/85 (112) 98 Room Air 07/15/17 03:00 68 18 143/65 (91) 100 Room Air 07/15/17 02:30 70 18 139/63 (88) 97 Room Air 07/15/17 01:30 64 20 166/71 (102) 100 Room Air 07/15/17 01:15 98.1 66 20 180/81 (114) 97 Room Air 07/15/17 01:15 98 Room Air 07/15/17 01:00 62 20 180/81 (114) 100 Room Air 07/15/17 00:38 68 20 230/105 (146) 100 07/15/17 00:33 98.5 61 16 194/92 (126) 99 Physical Exam GENERAL: This is a well-nourished, well-developed patient, in no apparent distress. Patient speaks in clear complete sentences. Patient is pleasant. HEENT: Head is atraumatic and normocephalic. Neck is supple without lymphadenopathy and trachea is midline. No JVD or carotid bruits. CARDIOVASCULAR: Regular rate and rhythm without murmurs, gallops, or rubs. RESPIRATORY: Clear to auscultation. Breath sounds equal bilaterally. No wheezes , rales, or rhonchi. Chest wall is nontender. No use of accessory muscles. GASTROINTESTINAL: Abdomen is nontender, nondistended. Abdomen soft. No obvious pulsatile mass or bruit. No CVA tenderness. Strong femoral pulses bilaterally. Normal bowel sounds in all quadrants. MUSCULOSKELETAL: There is bilateral 1+ lower extremity edema which patient states is chronic. Patient is moving upper and lower extremities freely. No calf tenderness edema, no Homans sign. Strong pulses in upper and lower extremities. NEUROLOGICAL: Patient is alert and oriented. Cranial nerves 2-12 are grossly intact. No focal deficits and speech is clear. SKIN: No rash and turgor is normal. Laboratory Laboratory Tests Test 07/15/17 01:00 07/15/17 04:00 07/15/17 07:20 White Blood Count 7.0 Red Blood Count 4.58 Hemoglobin 12.3 Hematocrit 37.0 Mean Corpuscular Volume 80.8 Mean Corpuscular Hemoglobin 26.9 Mean Corpuscular Hemoglobin Concent 33.3 Red Cell Distribution Width 13.8 Platelet Count 250 Mean Platelet Volume 9.3 Neutrophils (%) (Auto) 53.8 Lymphocytes (%) (Auto) 36.1 Monocytes (%) (Auto) 8.3 Eosinophils (%) (Auto) 1.5 Basophils (%) (Auto) 0.3 Neutrophils # (Auto) 3.7 Lymphocytes # (Auto) 2.5 Monocytes # (Auto) 0.6 Eosinophils # (Auto) 0.1 Basophils # (Auto) 0.0 CBC Comment DIFF FINAL Differential Comment Prothrombin Time 10.0 Prothromb Time International Ratio 0.9 Activated Partial Thromboplast Time 27.8 Blood Urea Nitrogen 12 Creatinine 1.06 Random Glucose 82 Total Protein 8.4 Albumin 3.8 Calcium Level 8.8 Alkaline Phosphatase 55 Aspartate Amino Transf (AST/SGOT) 17 Alanine Aminotransferase (ALT/SGPT) 19 Total Bilirubin 0.6 Sodium Level 141 Potassium Level 3.4 Chloride Level 105 Carbon Dioxide Level 28.5 Anion Gap 8 Estimat Glomerular Filtration Rate 66 Total Creatine Kinase 233 202 181 Creatine Kinase MB 0.9 0.8 0.9 Creatine Kinase MB % 0.4 0.4 Troponin I LESS THAN 0.02 LESS THAN 0.02 LESS THAN 0.02 B-Type Natriuretic Peptide 7 Lipase 229 Urine Color LIGHT-YELLOW Urine Turbidity CLEAR Urine pH 6.5 Urine Specific [place] 1.011 Urine Protein NEG Urine Glucose (UA) NEG Urine Ketones NEG Urine Occult Blood NEG Urine Nitrite NEG Urine Bilirubin NEG Urine Urobilinogen LESS THAN 2.0 Urine Leukocyte Esterase NEG Urine RBC LESS THAN 1 Urine WBC 2 Urine Bacteria RARE Microscopic Urinalysis Comment CULT NOT INDICATED Urine Opiates Screen NEG Urine Barbiturates Screen NEG Urine Amphetamines Screen NEG Urine Benzodiazepines Screen NEG Urine Cocaine Screen NEG Urine Cannabinoids Screen NEG Result Diagram: 07/15/179907/15/1799 Imaging Last 48 hours Impressions Chest X-Ray 07/15/1740 Signed Impressions: Service Date/Time: Saturday, July 15, 2017 00:51 - CONCLUSION: 1. Cardiomegaly and findings of vascular congestion without overt failure. Bassam Bland MD Course EKGs have sinus rhythm with moderate nonspecific T-wave changes. Caprini VTE Risk Assessment Caprini VTE Risk Assessment: No/Low Risk (score <= 1) Caprini Risk Assessment Model Point Value = 1 Point Value = 2 Point Value = 3 Point Value = 5 Age 41-60 Minor surgery BMI > 25 kg/m2 Swollen legs Varicose veins or History of unexplained or recurrent spontaneous Oral contraceptives or hormone replacement Sepsis (< 1 month) Serious lung disease, including pneumonia (< 1 month) Abnormal pulmonary function Acute myocardial infarction Congestive heart failure (< 1 month) History of inflammatory bowel disease Medical patient at bed rest Age 61-74 Arthroscopic surgery Major open surgery (> 45 min) Laparoscopic surgery (> 45 min) Malignancy Confined to bed (> 72 hours) Immobilizing plaster cast Central venous access Age >= 75 History of VTE Family history of VTE Factor V Leiden Prothrombin [id number] Lupus anticoagulant Anticardiolipin antibodies Elevated serum homocysteine Heparin-induced thrombocytopenia Other congenital or acquired thrombophilia Stroke (< 1 month) Elective arthroplasty Hip, pelvis, or leg fracture Acute spinal cord injury (< 1 month) Prophylaxis Regimen Total Risk Factor Score Risk Level Prophylaxis Regimen 0-1 Low Early ambulation 2 Moderate Order ONE of the following: *Sequential Compression Device (SCD) *Heparin 5000 units SQ BID 3-4 Higher Order ONE of the following medications: *Heparin 5000 units SQ TID *Enoxaparin/Lovenox 40 mg SQ daily (WT < 150 kg, CrCl > 30 mL/min) *Enoxaparin/Lovenox 30 mg SQ daily (WT < 150 kg, CrCl > 10-29 mL/min) *Enoxaparin/Lovenox 30 mg SQ BID (WT < 150 kg, CrCl > 30 mL/min) AND/OR *Sequential Compression Device (SCD) 5 or more Highest Order ONE of the following medications: *Heparin 5000 units SQ TID (Preferred with Epidurals) *Enoxaparin/Lovenox 40 mg SQ daily (WT < 150 kg, CrCl > 30 mL/min) *Enoxaparin/Lovenox 30 mg SQ daily (WT < 150 kg, CrCl > 10-29 mL/min) *Enoxaparin/Lovenox 30 mg SQ BID (WT < 150 kg, CrCl > 30 mL/min) AND *Sequential Compression Device (SCD) Assessment and Plan Assessment and Plan * Chest pain: Patient has had serial cardiac enzymes and EKGs for ruling out purposes and has been seen by Dr. Bassam Arita of cardiology in the chest pain center. She will undergo a Lexiscan. Also get a western sedimentation rate and of both were normal patient be discharged home with instructions to follow-up with PCP and cardiology. * Hypertension: Continue current medication. Patient is stable at this time. She is agreeable to this plan. Ezequiel Jacobsen Jul 15, 2017 12:52
[2017-07-15] MEDS ORDERED: DILTIAZEM-CD 240 MG CAP ER PO SCH (13:00)
--- NOTE | 2017-07-15 13:53 | RADRPT ---
EXAM DATE/TIME: 07/15/2017 11:31 [facility] COMPARISON: MYOCARDIAL PERF PHARM SPECT, GATED W/EF, July 18, 2015, 17:08. INDICATIONS : Chest pain radiating to the back. Angina. DOSE: 34.8 mCi Tc99m Myoview at stress. 11 mCi Tc99m Myoview at rest. 0.4 mg Lexiscan STRESS SYMPTOMS: Dyspnea. EJECTION FRACTION: 61% MEDICAL HISTORY : Gastroesophageal reflux disease. Hypercholesterolemia. Hypertension. Stroke, SURGICAL HISTORY : Coronary artery stent. Hysterectomy. ENCOUNTER: Initial ACUITY: 1 day PAIN SCALE: 9/10 LOCATION: chest TECHNIQUE: The patient underwent pharmacologic stress with infusion of prescribed dose. Continuous ECG tracing was monitored during stress. Gated SPECT imaging was performed after stress and conventional SPECT i maging was performed at rest. The examination was performed on a SPECT/CT scanner, both attenuation and non-corrected datasets were reviewed. FINDINGS: DISTRIBUTION: The maximum perfused segment at stress is in the anterior lateral wall PERFUSION STUDY: The pattern of perfusion at stress is within normal limits. GATED STUDY: There is intact wall motion and thickening without hypokinetic or dyskinetic segments. CONCLUSION: Negative for stress-induced ischemia. RISK CATEGORY: Low (<1% Annual Mortality Rate) Nigel Burr MD FACR on July 15, 2017 at 13:50 Board Certified Radiologist. This report was verified electronically.
--- NOTE | 2017-07-15 15:26 | HHI.DCPOC ---
Discharge Care Plan Diagnosis: (1) Chest pain (2) Hypertension Goals to Promote Your Health * To prevent worsening of your condition and complications * To maintain your health at the optimal level Directions to Meet Your Goals Take your medications as prescribed Follow your dietary instruction Follow activity as directed Keep your appointments as scheduled Take your immunizations and boosters as scheduled If your symptoms worsen call your PCP, if no PCP go to Urgent Care Center or Emergency Room Smoking is Dangerous to Your Health. Avoid second hand smoke Call the 24-hour hour crisis hotline for domestic abuse at Ezequiel Jacobsen Jul 15, 2017 15:26
== END 2017-07-15 15:59 | disposition home or self-care (01) ==
LOC: NEPC 00:29 → NEDA 02:43 → NEDH 06:25 → NEPFCDU 14:59
PROVIDERS: ADMIT Internal Medicine Interventional Cardiology; ATTEND Internal Medicine Interventional Cardiology
DX: R07.9 Chest pain, unspecified (principal); I11.9 Hypertensive heart disease without heart failure; J45.909 Unspecified asthma, uncomplicated; E78.00 Pure hypercholesterolemia, unspecified; Q82.0 Hereditary lymphedema; K21.9 Gastro-esophageal reflux disease without esophagitis; I44.0 Atrioventricular block, first degree; Z95.5 Presence of coronary angioplasty implant and graft; R94.31 Abnormal electrocardiogram [ECG] [EKG]; R06.00 Dyspnea, unspecified
CPT/HCPCS: 71010; 78452; 80053; 80307; 81001; 82550; 82552; 83690; 83880; 84484; 85025; 85610; 85730; 93005; 93017; 96374; 99285; A9502; G0378; J2270; J2785

== ENCOUNTER 2018-06-07 10:08 | Observation (INO) ==
[2018-06-07 10:13] VITALS: TEMP 98
[2018-06-07 10:47] VITALS: RESP 17
--- NOTE | 2018-06-07 10:52 | ED ---
HPI General Chief Complaint: Neuro Symptoms/Deficit Stated Complaint: left side face pain Time Seen by Provider: 06/07/18 10:47 Source: patient Mode of arrival: ambulatory Limitations: no limitations History of Present Illness HPI Narrative: 53-year-old female patient with previous history of CAD, diabetes , hypertension, CHF, presents to the ER today because she states that she has been having several days of left facial paresthesias, left arm paresthesias, and feeling generally weak.She points to her left lower facial area, radiating up from the neck and down the left arm, states the pain is currently a 7 out of 10. She has not noted any exacerbating or alleviating factors. She also reports some chest discomfort. She denies any shortness of breath or other symptoms. Related Data Home Medications Medication Instructions Recorded Confirmed diltiazem HCl 240 mg PO DAILY 06/07/18 06/07/18 furosemide [Lasix] 20 mg PO DAILY 06/07/18 06/07/18 potassium chloride 20 meq PO DAILY 06/07/18 06/07/18 Allergies Allergy/AdvReac Type Severity Reaction Status Date / Time No Known Allergies Allergy Unverified 07/15/17 01:15 seasonal Allergy Severe Uncoded 11/09/13 14:16 Review of Systems ROS: all other systems reviewed are negative [facility] Medical History Medical History Atrial fibrillation (Acute) Congestive cardiac failure (Acute) High blood pressure (Acute) Social History Social History Substance History: No History of Abuse Second Hand Smoke Exposure: No Smoking Status: Former smoker Tobacco Type: Cigarettes How Often Do You Have a Drink Containing Alcohol: Never Recent Travel in [facility] within the Last 8 Weeks: No Recent Out of Country Travel within the Last 8 Weeks: No Immunization History Tetanus Immunization: Unsure Exam Narrative Exam Narrative: GENERAL: Well-developed middle-age -[place] female patient currently in mild distress. Awake and oriented x3. SKIN: Focused skin assessment warm/dry. HEAD: Atraumatic. Normocephalic. No temporal tenderness. EYES: Pupils equal and round. No scleral icterus. No injection or drainage. ENT: No nasal bleeding or discharge. Mucous membranes pink and moist. NECK: Trachea midline. No JVD. CARDIOVASCULAR: Regular rate and rhythm. No murmur appreciated.Pulses are present and equal bilaterally. RESPIRATORY: No accessory muscle use. Clear to auscultation. Breath sounds equal bilaterally. GASTROINTESTINAL: Abdomen soft, non-tender, nondistended. Hepatic and splenic margins not palpable. MUSCULOSKELETAL: No obvious deformities. No clubbing. No cyanosis. No edema. NEUROLOGICAL: Awake and alert. No obvious cranial nerve deficits. Motor grossly within normal limits. Normal speech. PSYCHIATRIC: Appropriate mood and affect; insight and judgment normal. Course Initial Documented Vital Signs Temperature 98.0 F 06/07/18 10:13 Pulse Rate 66 06/07/18 10:13 Respiratory Rate 20 06/07/18 10:13 Blood Pressure 152/96 H 06/07/18 10:13 Pulse Oximetry 98 06/07/18 10:13 Last Documented Vital Signs Temperature 98.0 F 06/07/18 10:13 Pulse Rate 66 06/07/18 10:43 Respiratory Rate 17 06/07/18 10:43 Blood Pressure 120/57 L 06/07/18 10:43 Pulse Oximetry 99 06/07/18 11:05 Medical Decision Making MDM Narrative Medical decision making narrative: Considering patient's medical history and previous cardiac history, symptoms are possibly secondary to an atypical chest pain. Planning to admit for further evaluation. EKG did not show any signs of acute elevations, Cardiac enzymes are negative. Chest x-ray was unremarkable. Medical Screen Exam Complete: Yes Emergency Medical Condition: Yes Differential Diagnosis Differential Diagnosis: Cervical neuropathy versus TIA/CVA versus electrolyte abnormalities versus atypical AR Lab Data Lab results reviewed: Yes I reviewed the patient's lab results. Result diagrams: 06/07/18 10:55 06/07/18 10:55 Lab Results 06/07/18 06/07/18 06/07/18 Range/Units 10:55 10:55 10:55 WBC 6.8 (4.0-11.0) th/mm3 RBC 4.78 (4.00-5.30) mil/mm3 Hgb 12.9 (11.6-15.3) gm/dL Hct 39.7 (35.0-46.0) % MCV 83.1 (80.0-100.0) fL MCH 27.0 (27.0-34.0) pg MCHC 32.5 (32.0-36.0) % RDW 14.1 (11.6-17.2) % Plt Count 253 (150-450) th/mm3 MPV 8.9 (7.0-11.0) fL Neut % (Auto) 68.8 (16.0-70.0) % Lymph % (Auto) 22.3 (9.0-44.0) % [place] % (Auto) 7.7 (0.0-8.0) % Eos % (Auto) 1.0 (0.0-4.0) % Baso % (Auto) 0.2 (0.0-2.0) % Neut # (Auto) 4.7 (1.8-7.7) th/mm3 Lymph # (Auto) 1.5 (1.0-4.8) th/mm3 [place] # (Auto) 0.5 (0.0-0.9) th/mm3 Eos # (Auto) 0.1 (0.0-0.4) th/mm3 Baso # (Auto) 0.0 (0.0-0.2) th/mm3 WBC Differential . Differential Comment Auto diff final PT 10.0 (9.8-11.6) sec INR 1.0 Ratio APTT 26.2 (24.3-30.1) sec Sodium 136 (136-145) meq/L Potassium 4.1 (3.5-5.1) meq/L Chloride 103 (98-107) meq/L Carbon Dioxide 25.5 (21.0-32.0) meq/L Anion Gap 8 (5-15) meq/L BUN 12 (7-18) mg/dL Creatinine 0.96 (0.50-1.00) mg/dL Estimated GFR 73 L (>89) mL/min Random Glucose 82 (74-106) mg/dL Calcium 9.1 (8.5-10.1) mg/dL Total Creatine Kinase 267 H (26-192) U/L CK-MB (CK-2) 1.2 (0.5-3.6) ng/mL CK-MB (CK-2) % 0.4 (0.0-4.0) % Troponin I Less than 0.02 L (0.02-0.05) ng/mL Imaging Data Attestation: I personally reviewed and interpreted this imaging study as follows : Radiologist's impression: Chest X-Ray 06/07/18 10:47 CONCLUSION: Cardiomegaly with pulmonary vascular engorgement. No radiographic evidence to suggest interstitial or intra-alveolar edema. Head CT 06/07/18 10:48 CONCLUSION: 1. Negative CT Head non contrast. . ECG Data Attestation: I personally reviewed and interpreted this ECG as follows: Interpretation: EKG shows normal sinus rhythm at a rate of 58 bpm. No signs of acute ST elevations but there are notable T wave inversions in 1, aVL, V2 through V6. Discharge Plan Discharge Disposition Patient Disposition: 30 Still Patient Discharge Condition Condition: Stable Discharge Details Anticipated Discharge Date: 06/07/18 Diagnosis: Atypical chest pain Physicians Team ED Provider: Samuel Barnes Primary Care Provider: Primary Care TomaiDestini Rxs /Orders / Referrals /Forms Prescriptions: No Action diltiazem HCl 240 mg Capsule,Extended Release 24 Hr 240 mg PO DAILY RF: 0 furosemide [Lasix] 20 mg Tablet 20 mg PO DAILY RF: 0 potassium chloride 20 mEq Tablet Extended Release 20 meq PO DAILY RF: 0 Discharge Instructions Patient Printed Instructions: Noncardiac Chest Pain (ED) Status ED Status: With Doctor
[2018-06-07 11:11] LABS: Baso % (Auto) 0.2 % (0.0-2.0); Eos # (Auto) 0.1 th/mm3 (0.0-0.4); Hematocrit 39.7 % (35.0-46.0); Hemoglobin 12.9 gm/dL (11.6-15.3); Lymph # (Auto) 1.5 th/mm3 (1.0-4.8); Lymph % (Auto) 22.3 % (9.0-44.0); Mean Corpuscular HGB Conc 32.5 % (32.0-36.0); Mean Corpuscular Volume 83.1 fL (80.0-100.0); Mean Platelet Volume 8.9 fL (7.0-11.0); Mono # (Auto) 0.5 th/mm3 (0.0-0.9); Mono % (Auto) 7.7 % (0.0-8.0); Neut # (Auto) 4.7 th/mm3 (1.8-7.7); Neut % (Auto) 68.8 % (16.0-70.0); Platelet Count 253 th/mm3 (150-450); Red Blood Count 4.78 mil/mm3 (4.00-5.30); Red Cell Distribution Width 14.1 % (11.6-17.2); White Blood Count 6.8 th/mm3 (4.0-11.0)
[2018-06-07 11:28] LABS: Anion Gap 8 meq/L (5-15); Blood Urea Nitrogen 12 mg/dL (7-18); Calcium 9.1 mg/dL (8.5-10.1); Carbon Dioxide 25.5 meq/L (21.0-32.0); Chloride 103 meq/L (98-107); Glomerular Filtration Rate 73 mL/min (>89); Glucose,Random 82 mg/dL (74-106); Sodium 136 meq/L (136-145)
[2018-06-07 11:29] LABS: Activated Partial Thrombo Time 26.2 sec (24.3-30.1); Potassium 4.1 meq/L (3.5-5.1)
[2018-06-07 11:39] LABS: Creatine Kinase 267 U/L (26-192)
--- NOTE | 2018-06-07 11:46 | CT ---
EXAM DATE: 06/07/2018 11:03 AM EDT AGE/SEX: 53 years / Female INDICATIONS: Left sided facial pain left hand numbness CLINICAL DATA: This is the patient's initial encounter. Patient reports that signs and symptoms have been present for 1 day and indicates a pain score of 7/10. MEDICAL/SURGICAL HISTORY: Congestive heart failure. A-fib None. RADIATION DOSE: 37.93 CTDI (mGy) [place] [facility] [place] [facility] [place] 3D [place]ON[place] 03/07/2011. . TECHNIQUE: CT of the head without contrast. Using automated exposure control and adjustment of the mA and/or kV according to patient size, radiation dose was kept as low as reasonably achievable to ob tain optimal diagnostic quality images. DICOM format image data is available electronically for revi ew and comparison. FINDINGS: Cerebrum: The ventricles are normal for age. No evidence of midline shift, mass lesion, hemorrhage or acute infarction. No extraaxial fluid collections are seen. Posterior Fossa: The cerebellum and brainstem are intact. The 4th ventricle is midline. The cerebe llopontine angle is unremarkable. Extracranial: The visualized portion of the orbits is intact. Skull: The calvaria is intact. No evidence of skull fracture. CONCLUSION: 1. Negative CT Head non contrast. . Electronically signed by: Juan Whittington MD 06/07/2018 11:44 AM EDT
[2018-06-07 11:52] LABS: CKMB Percent 0.4 % (0.0-4.0); Creatine Kinase MB 1.2 ng/mL (0.5-3.6)
--- NOTE | 2018-06-07 12:20 | XR ---
EXAM DATE: 06/07/2018 10:47 AM EDT AGE/SEX: 53 years / Female INDICATIONS: Chest pain and left arm tingling. CLINICAL DATA: This is the patient's initial encounter. Patient reports that signs and symptoms have been present for 1 day and indicates a pain score of 4/10. MEDICAL/SURGICAL HISTORY: None. None. COMPARISON: [facility] [place], CHEST SINGLE AP, 07/15/2017. . FINDINGS: A single AP view of the chest demonstrates the lungs to be symmetrically aerated without evidence of mass, infiltrate or effusion. Significant cardiomegaly is unchanged. Pulmonary vascular engorgement n oted. Osseous structures are intact. CONCLUSION: Cardiomegaly with pulmonary vascular engorgement. No radiographic evidence to suggest interstitial or intra-alveolar edema. Electronically signed by: Gerardo Burris MD 06/07/2018 12:19 PM EDT
[2018-06-07] MEDS ORDERED: Aspirin 325 MG Tablet PO ONE (12:42)
[2018-06-07 13:28] VITALS: BP 108/55; PULSE 61; O2SAT 100
--- NOTE | 2018-06-07 13:34 | P.HPCA ---
History of Present Illness Primary Care Physician: No Primary Care Physician Chief Complaint: Facial pain and chest pain History of Present Illness: This is a 53-year-old female history of hypertension, chronic lymphedema, mild CAD via heart catheterization 2008, cardiomegaly presents to ED with complaint of left-sided facial pain and chest pain. She states her main issue was that she developed left-sided facial pain last evening. Pain is been constant. It has been as bad as a 9 out of 10. Opening and closing her mouth seem to exacerbate the pain. Denies shortness of breath, nausea, or diaphoresis. She now also has had a tingling sensation going down the left side of her neck and into her left arm. She has had no weakness. She has been able to move her arms and legs freely. Has not noticed any facial changes and denies headache. Chest pain is described as an ache. Lasts a few minutes at a time. Her chest pain has been intermittent since onset of the facial pain. Patient has had stress test as well as heart cath in the past. 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 Last stress test on our records show a Lexiscan that was nonischemic with an EF of 61% July 25, 2017. Heart catheterization in 2008 revealed mild diffuse disease of the circumflex. Minimal luminal irregularities of the LAD. RCA and left main had no disease. Patient has been a lifetime non-smoker. States that her mother at age 60 of a myocardial infarction. Patient has history of hypertension. Heart disease, mild diffuse disease of the circumflex and minimal luminal irregularities of the LAD via cath 2008. Also history of chronic lymphedema and takes Lasix for that. Denies diabetes and hyperlipidemia. - Diagnosis (1) Chest pain (2) Facial pain (3) Paresthesias (4) Hypertension Review of Systems General: Patient denies fevers, chills, and recent travel. HEENT: Patient denies headache, sore throat, difficulty swallowing. Cardiovascular: Has the chest discomfort as mentioned above. Denies sensation of heart beating rapidly or irregularly. No syncope. Denies diaphoresis. Respiratory: Denies shortness of breath or inspirational chest discomfort. Denies coughing wheezing or hemoptysis. GI: Patient denies nausea, vomiting, diarrhea, abdominal pain, bloody stools. Musculoskeletal: Patient denies joint pain or edema. Denies calf pain or edema. Neurovascular: Complains of tingling down her left arm. Patient denies numbness , weakness in extremities. Denies headache. Denies difficulty with speech. Endocrine: Denies polyuria and polydipsia. Hematologic: Denies easy bruising. Skin: Denies rash or itching. PMFSH - History History Provided By: Patient - Medical History Medical History: Medical History (Last Reviewed 06/07/18 @ 10:54 by Samuel Barnes MD) Atrial fibrillation Congestive cardiac failure High blood pressure - Tobacco History Second Hand Smoke Exposure: No Tobacco Use In Past 30 Days: No Smoking Status: Former smoker Tobacco Type: Cigarettes - Alcohol History How Often Do You Have a Drink Containing Alcohol: Never - Substance Use History Substance History: No History of Abuse - Travel History Recent Travel in the [place] Within the Last 8 Weeks: No Recent Travel Out of the Country Within the Last 8 Weeks: No - Immunization History Tetanus Immunization: Unsure Medications and Allergies Active Medications: Active Medications Acetaminophen (Tylenol) 500 mg PO Q6H PRN PRN Reason: pain scale 1-5 Hydrocodone Bitart/Acetaminophen ([place] 7.5/325) 1 tab PO Q6H PRN PRN Reason: pain scale 6-10 Albuterol (Duoneb Neb (Prn)) 1 ampul NEB Q4HR NEB PRN PRN Reason: SHORTNESS OF BREATH/WHEEZING Aspirin (Aspirin) 325 mg PO DAILY SUMMER Ondansetron HCl (Zofran Inj) 4 mg IV.PUSH Q6H PRN PRN Reason: NAUSEA Sodium Chloride (Ns Flush) 2 ml IV.FLUSH PRN PRN PRN Reason: FLUSH AFTER USING IV ACCESS Sodium Chloride (Ns Flush) 2 ml IV.FLUSH BID SUMMER Sodium Chloride (Ns Flush) 2 ml IV.FLUSH PRN PRN PRN Reason: FLUSH AFTER USING IV ACCESS Allergies Allergy/AdvReac Type Severity Reaction Status Date / Time No Known Allergies Allergy Unverified 07/15/17 01:15 seasonal Allergy Severe Uncoded 11/09/13 14:16 Home Medications Medication Instructions Recorded Confirmed Type diltiazem HCl 240 mg PO DAILY 06/07/18 06/07/18 History furosemide [Lasix] 20 mg PO DAILY 06/07/18 06/07/18 History potassium chloride 20 meq PO DAILY 06/07/18 06/07/18 History Exam Vital signs: Vital Signs 06/07/18 10:13 06/07/18 10:43 06/07/18 10:48 Temperature 98.0 F Pulse Rate 66 66 Respiratory Rate 20 17 Blood Pressure 152/96 H 120/57 L Pulse Oximetry 98 100 100 06/07/18 11:05 Temperature Pulse Rate Respiratory Rate Blood Pressure Pulse Oximetry 99 Intake & Output 06/06/18 06/07/18 06/07/18 18:59 06:59 18:59 Weight 114.305 kg Narrative: GENERAL: This is a well-nourished, well-developed patient, in no apparent distress. Patient speaks in clear complete sentences. Patient is pleasant. HEENT: There is discomfort at left TMJ on palpating the area as well as with opening and closing of the mouth reproducing pain at the left TMJ. Head is atraumatic and normocephalic. Neck is supple without lymphadenopathy and trachea is midline. No JVD or carotid bruits. CARDIOVASCULAR: Regular rate and rhythm without murmurs, gallops, or rubs. RESPIRATORY: Clear to auscultation. Breath sounds equal bilaterally. No wheezes , rales, or rhonchi. Chest wall is nontender. No use of accessory muscles. GASTROINTESTINAL: Abdomen is nontender, nondistended. Abdomen soft. No obvious pulsatile mass or bruit. No CVA tenderness. Strong femoral pulses bilaterally. Normal bowel sounds in all quadrants. MUSCULOSKELETAL: Chronic lymphedema bilateral lower extremities. Patient is moving upper and lower extremities freely. No calf tenderness. No Homans sign. Strong pulses in upper and lower extremities. NEUROLOGICAL: Patient is alert and oriented. Cranial nerves 2-12 are grossly intact. No focal deficits and speech is clear. SKIN: No rash and turgor is normal. Results 06/07/18 10:55 06/07/18 10:55 Cardiac Enzymes 06/07/18 Range/Units 10:55 CK-MB (CK-2) 1.2 (0.5-3.6) ng/mL Troponin I Less than 0.02 L (0.02-0.05) ng/mL Coagulation 06/07/18 Range/Units 10:55 PT 10.0 (9.8-11.6) sec APTT 26.2 (24.3-30.1) sec CBC 06/07/18 Range/Units 10:55 WBC 6.8 (4.0-11.0) th/mm3 RBC 4.78 (4.00-5.30) mil/mm3 Hgb 12.9 (11.6-15.3) gm/dL Hct 39.7 (35.0-46.0) % Plt Count 253 (150-450) th/mm3 Neut # (Auto) 4.7 (1.8-7.7) th/mm3 Lymph # (Auto) 1.5 (1.0-4.8) th/mm3 [place] # (Auto) 0.5 (0.0-0.9) th/mm3 Eos # (Auto) 0.1 (0.0-0.4) th/mm3 Baso # (Auto) 0.0 (0.0-0.2) th/mm3 Comprehensive Metabolic Panel 06/07/18 Range/Units 10:55 Sodium 136 (136-145) meq/L Potassium 4.1 (3.5-5.1) meq/L Chloride 103 (98-107) meq/L Carbon Dioxide 25.5 (21.0-32.0) meq/L BUN 12 (7-18) mg/dL Creatinine 0.96 (0.50-1.00) mg/dL Calcium 9.1 (8.5-10.1) mg/dL Intake and Output 06/06/18 06/07/18 06/07/18 22:59 06:59 14:59 Other: Weight 114.305 kg Patient Weight 06/08/18 06:59 Weight 114.305 kg - Imaging and Cardiology Imaging: Impressions Chest X-Ray 06/07/18 10:47 CONCLUSION: Cardiomegaly with pulmonary vascular engorgement. No radiographic evidence to suggest interstitial or intra-alveolar edema. Head CT 06/07/18 10:48 CONCLUSION: 1. Negative CT Head non contrast. . EKG interpretations - EKG EKG shows: bradycardia (Initial EKG is sinus bradycardia rate of 58 nonspecific T wave changes.) Caprini VTE Risk Assessment Caprini VTE Risk Assessment: No/Low Risk (score <= 1) Caprini Risk Assessment Model: Point Value = 1 Point Value = 2 Point Value = 3 Point Value = 5 Age 41-60 Minor surgery BMI > 25 kg/m2 Swollen legs Varicose veins or History of unexplained or recurrent spontaneous Oral contraceptives or hormone replacement Sepsis (< 1 month) Serious lung disease, including pneumonia (< 1 month) Abnormal pulmonary function Acute myocardial infarction Congestive heart failure (< 1 month) History of inflammatory bowel disease Medical patient at bed rest Age 61-74 Arthroscopic surgery Major open surgery (> 45 min) Laparoscopic surgery (> 45 min) Malignancy Confined to bed (> 72 hours) Immobilizing plaster cast Central venous access Age >= 75 History of VTE Family history of VTE Factor V Leiden Prothrombin [id number] Lupus anticoagulant Anticardiolipin antibodies Elevated serum homocysteine Heparin-induced thrombocytopenia Other congenital or acquired thrombophilia Stroke (< 1 month) Elective arthroplasty Hip, pelvis, or leg fracture Acute spinal cord injury (< 1 month) Prophylaxis Regimen: Total Risk Factor Score Risk Level Prophylaxis Regimen 0-1 Low Early ambulation 2 Moderate Order ONE of the following: *Sequential Compression Device (SCD) *Heparin 5000 units SQ BID 3-4 Higher Order ONE of the following medications: *Heparin 5000 units SQ TID *Enoxaparin/Lovenox 40 mg SQ daily (WT < 150 kg, CrCl > 30 mL/min) *Enoxaparin/Lovenox 30 mg SQ daily (WT < 150 kg, CrCl > 10-29 mL/min) *Enoxaparin/Lovenox 30 mg SQ BID (WT < 150 kg, CrCl > 30 mL/min) AND/OR *Sequential Compression Device (SCD) 5 or more Highest Order ONE of the following medications: *Heparin 5000 units SQ TID (Preferred with Epidurals) *Enoxaparin/Lovenox 40 mg SQ daily (WT < 150 kg, CrCl > 30 mL/min) *Enoxaparin/Lovenox 30 mg SQ daily (WT < 150 kg, CrCl > 10-29 mL/min) *Enoxaparin/Lovenox 30 mg SQ BID (WT < 150 kg, CrCl > 30 mL/min) AND *Sequential Compression Device (SCD) Assessment and Plan - Assessment (1) Chest pain Code(s): R07.9 - Chest pain, unspecified Status: Acute (2) Facial pain Code(s): R51 - Headache Status: Acute (3) Paresthesias Code(s): R20.2 - Paresthesia of skin Status: Acute (4) Hypertension Code(s): I10 - Essential (primary) hypertension Status: Acute - Plan * Chest pain: Patient symptoms seem atypica. First troponin has been normal. Patient will be seen by Dr. Bassam Arita of cardiology in the chest pain center. She will undergo a Lexiscan. She be discharged home if her stress test is nonischemic with instructions to follow-up with PCP. Return to ED for interval issues. * Facial pain: Patient is tender at the left TMJ. CT brain read by radiologist as negative. Analgesia will be provided. She is to follow-up with PCP. * Hypertension: Continue medication. Patient is stable at this time. She is agreeable to this plan.
[2018-06-07] MEDS ORDERED: Acetaminophen 500 MG Tablet PO PRN (15:00)
[2018-06-07] MEDS ORDERED: Regadenoson Inj 0.4 MG/5 ML Syringe IV.PUSH ONE (15:06)
--- NOTE | 2018-06-07 16:20 | ECG ---
Date Performed: 06/07/2018 Time Performed: 10:53:43 PTAGE: 53 years EKG: SINUS BRADYCARDIA WITH FIRST DEGREE AV BLOCK MODERATE T-WAVE ABNORMALITY, CONSIDER ANTERIOR ISCHEMIA ABNORMAL ECG PREVIOUS TRACING : 07/15/2017 07.37 Since the previous tracing, no significant change noted DOCTOR: Charley Villalpando Interpretating Date/Time 06/07/2018 16:19:09
--- NOTE | 2018-06-07 16:37 | NM ---
EXAM DATE: 06/07/2018 2:08 PM EDT AGE/SEX: 53 years / Female INDICATIONS:Angina. Atrial fibrillation Left sided chest pain. CLINICAL DATA: This is the patient's initial encounter. Patient reports that signs and symptoms have been present for 1 day and indicates a pain score of 7/10. MEDICAL/SURGICAL HISTORY: Cardiovascular disease. Congestive heart failure. Hypertension. Non e. COMPARISON: [facility] [place], MYOCARDIAL PERF PHARM SPECT, 07/15/2017. [facility] [place], MYOCARDIAL PERF PHARM SPECT, 07/08. . DOSE: 11 mCi Tc 99m Myoview at rest 35 mCi [id number] at stress 0.4 mg Lexiscan STRESS SYMPTOMS: Dyspnea and chest pressure. EJECTION FRACTION: 61 % TECHNIQUE: The patient underwent pharmacologic stress with infusion of prescribed dose. Continuous ECG tracing was monitored during stress. Gated SPECT imaging was performed after stress and conventi onal SPECT imaging was performed at rest. The examination was performed on a SPECT/CT scanner, both attenuation and non-corrected datasets were reviewed. FINDINGS: Distribution: The maximum perfused segment at stress is in the inferior wall. Perfusion Study: The pattern of perfusion at stress is within normal limits. Gated Study: There are intact wall motion and wall thickening without hypokinetic or dyskinetic segm ents. The ejection fraction is calculated at 61%. RISK CATEGORY: Low (<1% Annual Motality Rate) CONCLUSION: 1. Negative examination. Electronically signed by: Juan Whittington MD 06/07/2018 4:36 PM EDT
[2018-06-08] MEDS ORDERED: Aspirin 325 MG Tablet PO SCH (09:00)
[2018-06-08] MEDS ORDERED: dilTIAZem CD 240 MG Capsule PO SCH (09:00)
[2018-06-08] MEDS ORDERED: Furosemide 20 MG Tablet PO SCH (09:00)
--- NOTE | 2018-06-08 09:03 | TR ---
Date Performed: 06/07/2018 Time Performed: 15:04:40 DOCTOR: Jennifer Gomes DRUG LIST: CLINICAL HISTORY: REASON FOR TEST: REASON FOR ENDING: OBSERVATION: CONCLUSION: Lexiscan stress test was performed under standard four minute protocol. Radionuclid e was injected one minute prior to ending the test. No electrocardiographic abormalities were present to suggest ischemia. Nuclear imaging and interpretation are pending. COMMENTS:
== END 2018-06-07 17:25 | disposition home or self-care (01) ==
LOC: NEDA 10:08 → NEPC 10:08 → NEDA 14:44 → NEPGCP 16:18
PROVIDERS: ADMIT Internal Medicine Cardiovascular Disease; ATTEND Internal Medicine Cardiovascular Disease